=== PATIENT | male | born 1940 ===

== ENCOUNTER 2018-11-10 07:30 | Inpatient (IN) | payer OTHER ==
[~2018-11-10] VITALS: Ht 162.6 cm; Wt 61.2 kg
[~2018-11-10 07:30] MED LIST: BICALUTAMIDE50 MG PO; CARBIDOPA-LEVO1 EA13 PO
== END 2018-11-20 14:20 | disposition home or self-care (01) | DRG 983 ==
LOC: ADM 07:30 → EDSTATUS 07:30 → SURH 11-18 05:25 → O/R 11-18 05:25 → SURH 11-18 07:00
PROVIDERS: ADMIT Surgery
PROC: 0DJ08ZZ Inspection of Upper Intestinal Tract, Via Natural or Artificial Opening Endoscopic (ICD-10-PCS; 2018-11-18)
PROC: 0DB60ZZ Excision of Stomach, Open Approach (ICD-10-PCS; principal; 2018-11-18 07:00)
DX: C49.A2 Gastrointestinal stromal tumor of stomach (principal); G20 Parkinson's disease; N40.0 Benign prostatic hyperplasia without lower urinary tract symptoms; C61 Malignant neoplasm of prostate